=== PATIENT | male | born 1970 | race Caucasian/White ===

== ENCOUNTER 2017-10-03 15:05 | Outpatient (CLI) | payer BC ==
--- NOTE | 2017-10-03 17:14 | RAD ---
LEFT KNEE FOUR VIEWS: 10/03/17 No acute fracture, dislocation, or joint effusion was seen. There is a lianne of bone just medial to t he medial tibial plateau, at which point there is some bony spurring. I suspect that there has been o ld trauma in this location, however, it could be related to the bony spurring. Additionally, one view suggests some calcification in a central portion of the joint just medial to the midline. This could relate to an old cruciate injury. There is no joint space narrowing or dramatic arthritic change. IMPRESSION: 1. No acute findings. 2. Suspicion of old trauma to the medial side of the knee joint and possibly in one of the cruci ate ligaments. POS: HOME
== END 2017-10-03 15:06 | disposition home or self-care (01) ==
LOC: BURRAD 15:05
PROVIDERS: ATTEND Family Medicine
DX: M25.552 Pain in left hip (principal)

== ENCOUNTER 2020-01-24 13:10 | Emergency (ER) | payer BC ==
[2020-01-24] MEDS ORDERED: Ketorolac Tromethamine 60 MG/2 ML VIAL ONE (13:45)
[2020-01-24 13:48] LABS: Bilirubin Negative (Negative); Blood, Urine Negative (Negative); Clarity Cloudy (Clear); Glucose, Urine (Dipstick) Negative (Negative); Ketone, Urine Negative (Negative); Leukocyte Negative (Negative); Nitrite Negative (Negative); Protein, Urine (Dipstick) Negative (Neg-Trace); pH, Urine 8.5 (5.0-9.0)
== END 2020-01-24 14:08 | disposition home or self-care (01) ==
LOC: BURERS 13:10
DX: M54.5 Low back pain (principal); E78.5 Hyperlipidemia, unspecified; I10 Essential (primary) hypertension
CPT/HCPCS: 81003; 96372; 99283; J1885

== ENCOUNTER 2021-08-23 14:17 | Outpatient (CLI) | payer BC | END 2021-08-23 14:18 | disposition home or self-care (01) | LOC: BURRAD 14:17 | PROVIDERS: ATTEND Family Medicine | DX: M25.511 Pain in right shoulder (principal); M54.50 Low back pain, unspecified; M51.36 Other intervertebral disc degeneration, lumbar region; M51.37 Other intervertebral disc degeneration, lumbosacral region | CPT/HCPCS: 72100 ==

== ENCOUNTER 2023-04-30 17:17 | Emergency (ER) | payer BC, OTHER ==
[2023-04-30] MEDS ORDERED: Ipratropium/Albuterol 3 ML NEB ONE (17:57)
== END 2023-04-30 21:03 | disposition home or self-care (01) ==
LOC: BURERS 17:17
DX: J11.1 Influenza due to unidentified influenza virus with other respiratory manifestations (principal); I10 Essential (primary) hypertension
CPT/HCPCS: J7620

== ENCOUNTER 2023-12-09 09:49 | Emergency (ER) | payer BC, OTHER ==
[2023-12-09] MEDS ORDERED: Ibuprofen 200 MG TAB ONE (11:35)
[2023-12-09] MEDS ORDERED: predniSONE 20 MG TAB ONE (11:36)
== END 2023-12-09 11:43 | disposition home or self-care (01) ==
LOC: BURERS 09:49
DX: M54.50 Low back pain, unspecified (principal); I10 Essential (primary) hypertension; E78.5 Hyperlipidemia, unspecified; Z79.899 Other long term (current) drug therapy
CPT/HCPCS: 99283; J7512